=== PATIENT | female | born 1960 | race Caucasian/White ===

== ENCOUNTER 2018-11-17 09:33 | Inpatient (IN) | payer OTHER, SELFPAY ==
[2018-11-17] MEDS ORDERED: NA CHLORIDE 0.9% 1,000 ML ONE ×2 (10:46→11:12)
[2018-11-17] MEDS ORDERED: PIPER/TAZO/NS 3.375gm 3.375 GM/100 ML BAG ONE (10:47)
[2018-11-17 10:48] LABS: Absolute Lymphocytes (CBC) 2.1 K/uL (0.7-4.9); Basophils % 0.8 % (0-1.3); Eosinophils % 1.7 % (0-4.4); Hematocrit 42.3 % (36.0-45.0); Lymphocytes % 24.5 % (15.3-44.8); MPV 9.7 fL (7.6-11.3); Monocytes % 6.4 % (3.3-12.3); Protime INR 0.96; RBC Red Blood Cell Count 4.71 M/uL (3.86-4.86)
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
[2018-11-17 11:04] LABS: ALT/SGPT 35 U/L (12-78); AST/SGOT 20 U/L (15-37); Albumin 3.4 g/dL (3.4-5.0); Alkaline Phosphatase 153 U/L (45-117); BUN Blood Urea Nitrogen 10 mg/dL (7-18); Bicarbonate 24 mmol/L (21-32); Bilirubin Direct < 0.1 mg/dL (0-0.2); Bilirubin Total 0.4 mg/dL (0.2-1.0); Glucose Level 172 mg/dL (74-106); Magnesium 2.2 mg/dL (1.8-2.4); NT PRO-BNP 37 pg/mL (<125); Potassium 3.8 mmol/L (3.5-5.1); Protein, Total 7.4 g/dL (6.4-8.2); Sodium Level 140 mmol/L (136-145); Troponin I < 0.02 ng/mL (0.0-0.045)
[2018-11-17] MEDS ORDERED: VANCOMYCIN/NS 1 gm 1 GM/250 ML BAG IV ONE (11:45)
[2018-11-17] MEDS ORDERED: Levofloxacin500mg IV 500 MG/100 ML BAG IV SCH (12:00)
[2018-11-17] MEDS: NA CHLORIDE 0.9% 1,000 ML IV SCH ×2 (12:00→23:04)
--- NOTE | 2018-11-17 13:31 | RAD REPORT ---
EXAM DESCRIPTION: RAD - Chest Single View - 11/17/2018 11:37 am CLINICAL HISTORY: Cough, shortness of breath COMPARISON: April 2008 TECHNIQUE: AP portable chest image was obtained 1130 hours . FINDINGS: Lung volumes are low. Lung meyers are clear. Large body habitus and under penetrated film technique accentuate chest findings. No failure or volume overload. Heart and vasculature are normal. No measurable pleural effusion and no pneumothorax. No acute bony abnormality seen. No acute aortic findings suspected. IMPRESSION: No acute cardiopulmonary process. No significant interval change.
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
[2018-11-17] MEDS: Levofloxacin500mg IV 500 MG/100 ML BAG IV SCH (16:43)
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
[2018-11-17] MEDS ORDERED: ACETAMINOPHEN 325 MG TABLET PO PRN (20:05)
[2018-11-17] MEDS: PAROXETINE 40 MG PO SCH (21:00)
[2018-11-18 06:01] LABS: Absolute Lymphocytes (CBC) 2.6 K/uL (0.7-4.9); Basophils % 0.8 % (0-1.3); Eosinophils % 1.9 % (0-4.4); Hematocrit 38.4 % (36.0-45.0); Lymphocytes % 32.8 % (15.3-44.8); MPV 9.7 fL (7.6-11.3); Monocytes % 7.6 % (3.3-12.3)
[2018-11-18 06:23] LABS: ALT/SGPT 29 U/L (12-78); AST/SGOT 16 U/L (15-37); Albumin 2.9 g/dL (3.4-5.0); Alkaline Phosphatase 133 U/L (45-117); BUN Blood Urea Nitrogen 9 mg/dL (7-18); Bicarbonate 25 mmol/L (21-32); Bilirubin Total 0.4 mg/dL (0.2-1.0); Glucose Level 165 mg/dL (74-106); Potassium 3.9 mmol/L (3.5-5.1); Protein, Total 6.5 g/dL (6.4-8.2); Sodium Level 143 mmol/L (136-145)
--- NOTE | 2018-11-18 07:54 | EKG ---
Test Date: 2018-11-17 Test Time: 10:48:57 Conduit Bender: AJITH MEASUREMENT RESULTS: Intervals: Rate: 66 VT: 120 QRSD: 78 QT: 410 QTc: 429 [place]: P: 36 VT: 120 QRS: 48 T: 33 INTERPRETIVE STATEMENTS: Normal sinus rhythm Low voltage QRS Borderline ECG No previous ECG available for comparison Electronically Signed On 11-18-18 07:53:35 CDT by Cale Macdonald
[2018-11-18] MEDS ORDERED: PROPOFOL 200 MG/20 ML VIAL IV ONE ×2 (07:58→08:31)
[2018-11-18] MEDS ORDERED: LIDOCAINE 2% MPF 5 ML VIAL ONE (07:59)
[2018-11-18] MEDS ORDERED: MIDAZOLAM HCL 2 MG/2 ML INJ ONE (07:59)
[2018-11-18] MEDS ORDERED: FENTANYL CITR 100 MCG/2 ML ONE (07:59)
[2018-11-18] MEDS: NA CHLORIDE 0.9% 1,000 ML IV SCH ×3 (08:00→18:00)
[2018-11-18] MEDS ORDERED: BUPIVACAINE 0.25% PF 10 ML VIAL ONE (08:26)
[2018-11-18] MEDS ORDERED: NA CHLORIDE 0.9% 1,000 ML ONE (08:27)
[2018-11-18] MEDS ORDERED: BUPIVACA 0.25%/EPI 0.0005%/PF 30 ML VIAL ONE (08:43)
--- NOTE | 2018-11-18 08:46 | P.OP ---
Preoperative diagnosis: Right Breast Abscess Postoperative diagnosis: Right Breast Abscess Primary procedure: Incision and Drainage of Right Breast Abscess Anesthesia: GETA + Local Estimated blood loss: < 5cc Specimen: Aerobic, anaerobic Findings: Right Breast Abscess Transferred to: Recovery Room Condition: Good
[2018-11-18] MEDS: MEPERIDINE HCL 25 MG/0.5 ML ONE ×2 (08:58→09:12)
--- NOTE | 2018-11-18 11:02 | P.PN ---
Subjective Date of Service: 11/18/18 Chief Complaint: Breast Abscess Subjective: Doing well Physical Examination - Vital Signs Temperature: 97.4 F Blood Pressure: 129/55 Pulse: 70 Respirations: 14 Pulse Ox (%): 98 - Physical Exam General: Alert, In no apparent distress, Oriented x3, Cooperative HEENT: Atraumatic Neck: Supple Respiratory: Clear to auscultation bilaterally, Normal air movement Cardiovascular: Normal pulses, Regular rate/rhythm Neurological: Normal speech, Normal strength at 5/5 x4 extr, Normal tone - Studies Laboratory Data (last 24 hrs) 11/17/18 10:30: Sodium 140, Potassium 3.8, BUN 10, Creatinine 0.65, Glucose 172 H, Magnesium 2.2, Total Bilirubin 0.4, AST 20, ALT 35, Alkaline Phosphatase 153 H, Troponin I < 0.02 11/17/18 10:12: PT Cancelled, INR Cancelled 11/17/18 10:12: WBC Cancelled, Hgb Cancelled, Hct Cancelled, Plt Count Cancelled 11/17/18 10:12: Sodium Cancelled, Potassium Cancelled, BUN Cancelled, Creatinine Cancelled, Glucose Cancelled, Magnesium Cancelled, Total Bilirubin Cancelled, AST Cancelled, ALT Cancelled, Alkaline Phosphatase Cancelled Medications List Reviewed: Yes Assessment & Plan Discharge Plan: Home Plan to discharge in: 48 Hours Physician Review Additional Text: Impression: Right breast abscess with cellulitis, failed outpatient treatment Diabetes mellitus type 2, non insulin dependent Depression Plan: Right breast abscess with cellulitis, failed outpatient treatment: Continue with IV antibiotic therapy. Patient had surgical debridement of right abscess. Will have nursing teach on wound care. Cultures obtained during surgery. Will discuss with surgery about plan of care. Likely discharge in the next 24-48 hr. Diabetes mellitus type 2, non insulin dependent: There is history of diabetes. Will check A1c. Continue sliding scale. Patient reports having difficulty taking metformin in the past. Depression: Will verify and restart home medication. Time Spent Managing Pts Care (In Minutes): 55
[2018-11-18] MEDS ORDERED: TRAMADOL HCL 50 MG TAB PO PRN (11:04)
--- NOTE | 2018-11-18 12:20 | OP ---
Date of Procedure: 11/18/2018 Surgeon: William Daley MD, Preoperative Diagnosis: Right breast abscess. Postoperative Diagnosis: Right breast abscess. Procedure Performed: Incision and drainage right breast abscess. Anesthesia: General endotracheal plus local with 0.25% Marcaine with epinephrine. Estimated Blood Loss: Less than 5 cc. Specimen: Aerobic and anaerobic culture sent for speciation. Findings: Right breast abscess approximately 4 cm spherical at the 9 o'clock to 8 o'clock position a t the outside the nipple-areolar complex. Transferred to recovery room in good condition. Procedure In Detail: After informed consent was obtained, the patient was brought to the operating r oom, prepped and draped in the usual sterile fashion. After adequate anesthesia was achieved, I made a linear radial incision outside the nipple-areolar complex at approximately 8 o'clock position for approximately 7.5 cm to 2 cm in length. I immediately encountered abscess. This was cultured at thi s time. The area was copiously irrigated and suctioned out until completely dry. I digitized the ca vity and broke up all loculations. The area was copiously irrigated multiple times. Hemostasis was easily achieved with electrocautery and the wound was packed with quarter-inch iodoform packing and a sterile dressing was placed over top. The patient tolerated the procedure well without evidence of complication and transferred to PACU in good condition. All counts were correct at the end of the ca se. GERALD/NIKKI Voice ID: [id number] Report ID: [id number]
[2018-11-18] MEDS: Levofloxacin500mg IV 500 MG/100 ML BAG IV SCH (15:15)
[2018-11-18] MEDS: HYDROCODONE/APAP 10/325 TAB PO PRN ×2 (15:16→21:07)
[2018-11-18] MEDS ORDERED: ENOXAPARIN 40 MG/0.4 ML SQ SCH (17:00)
[2018-11-18] MEDS: PAROXETINE 40 MG PO SCH (21:06)
[2018-11-19] MEDS: NA CHLORIDE 0.9% 1,000 ML IV SCH ×2 (00:57→03:04)
[2018-11-19 05:44] LABS: Absolute Lymphocytes (CBC) 2.8 K/uL (0.7-4.9); Basophils % 0.6 % (0-1.3); Eosinophils % 2.1 % (0-4.4); Hematocrit 37.3 % (36.0-45.0); Lymphocytes % 34.7 % (15.3-44.8); MPV 9.8 fL (7.6-11.3); Monocytes % 7.2 % (3.3-12.3); RBC Red Blood Cell Count 4.06 M/uL (3.86-4.86)
[2018-11-19 06:06] LABS: BUN Blood Urea Nitrogen 10 mg/dL (7-18); Bicarbonate 24 mmol/L (21-32); Glucose Level 150 mg/dL (74-106); Magnesium 2.1 mg/dL (1.8-2.4); Potassium 3.8 mmol/L (3.5-5.1); Sodium Level 141 mmol/L (136-145)
[2018-11-19] MEDS: HYDROCODONE/APAP 10/325 TAB PO PRN (08:41)
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
== END 2018-11-19 11:00 | disposition home or self-care (01) | DRG 600 ==
LOC: ER 09:33 → ERHOLD 10:48 → 2ND 13:33
PROVIDERS: ADMIT Family Medicine; ATTEND Family Medicine
PROC: 0H9T3ZX Drainage of Right Breast, Percutaneous Approach, Diagnostic (ICD-10-PCS; principal; 2018-11-18 08:00)
DX: N61.1 Abscess of the breast and nipple (principal); Z68.41 Body mass index [BMI] 40.0-44.9, adult; E11.9 Type 2 diabetes mellitus without complications; F32.9 Major depressive disorder, single episode, unspecified; K21.9 Gastro-esophageal reflux disease without esophagitis; G47.33 Obstructive sleep apnea (adult) (pediatric); E66.9 Obesity, unspecified; Z91.040 Latex allergy status
CPT/HCPCS: 36415; 71045; 80048; 80053; 80076; 82962; 83036; 83735; 83880; 84484; 85025; 85610; 87040; 87070; 87075; 87077; 87186; 87205; 93005; 96365; 96375; 99285; J1650; J2175; J2250; J2543; J2704; J3010; J3370; J7030

== ENCOUNTER 2018-11-20 16:46 | Emergency (ER) | payer SELFPAY ==
--- OUTSIDE RECORDS SUMMARY | 2018-11-20 16:48 | XMS REPORT ---
:1960 [facility] Address [address] [place] [address] [address] [place] [address] Care Team Providers Name Role Phone Unavailable Unavailable Unavailable Problems This patient has no known problems. Allergies, Adverse Reactions, Alerts This patient has no known allergies or adverse reactions. Medications This patient has no known medications.
[2018-11-20 18:36] LABS: Absolute Lymphocytes (CBC) 0.8 K/uL (0.7-4.9); Basophils % 0.4 % (0-1.3); Eosinophils % 0.4 % (0-4.4); Hematocrit 40.7 % (36.0-45.0); Lymphocytes % 8.5 % (15.3-44.8); MPV 9.4 fL (7.6-11.3); Monocytes % 4.2 % (3.3-12.3); RBC Red Blood Cell Count 4.55 M/uL (3.86-4.86)
[2018-11-20] MEDS ORDERED: PROMETHAZINE 25 MG/ML VIAL ONE ×2 (18:37→21:11)
[2018-11-20] MEDS ORDERED: FENTANYL CITR 100 MCG/2 ML ONE ×2 (18:38→20:22)
[2018-11-20] MEDS ORDERED: NA CHLORIDE 0.9% 1,000 ML ONE (18:38)
[2018-11-20 18:49] LABS: Albumin 3.4 g/dL (3.4-5.0); Bilirubin Direct 0.1 mg/dL (0-0.2); Bilirubin Total 0.6 mg/dL (0.2-1.0); Potassium 3.6 mmol/L (3.5-5.1); Protein, Total 7.3 g/dL (6.4-8.2)
[2018-11-20 20:03] LABS: Urine Bacteria <20 /HPF (<20); Urine Culture Reflex Order NOT NEEDED; Urine RBC <5 /HPF (NONE SEEN)
[2018-11-20 20:51] LABS: Urine Blood NEGATIVE (NEG); Urine Glucose NEGATIVE (NEG); Urine Protein NEGATIVE (NEG); Urine Specific Gravity 1.015 (1.005-1.030); Urine pH 5.5 (5.0-7.0)
--- NOTE | 2018-11-20 21:02 | EDPHYS ---
Physician Documentation [facility] Name: Minnie Hermosillo Age: 58 yrs Sex: Female : 1960 Arrival Date: 11/20/2018 Time: 16:49 Bed 20 Private MD: ED Physician Niles Butcher HPI: 11/20 18:10 This 58 yrs old Female presents to ER via Unassigned with complaints of snw Fever, Vomiting. 18:10 The patient reports fever, that was measured at 103 degrees Fahrenheit. Onset: The snw symptoms/episode began/occurred suddenly, today, and became persistent. Modifying factors: recent I\T\D of breast abscess. Associated signs and symptoms: Pertinent positives: chills, decreased appetite, nausea. Severity of symptoms: At their worst the symptoms were moderate severe. The patient has been recently seen by a physician: Dr. Daley. I\T\D of breast abscess Sunday. Dr. Daley in ED, will admit to hospitalist for IV abx if necessary. Will check culture sensitivities. Historical: - Allergies: 16:53 Codeine; aj 16:53 Latex, Natural Rubber; aj - Home Meds: 21:02 Reglan Oral [Active]; ao - PMHx: 21:02 Diabetes - NIDDM; ao - PSHx: 21:02 None; ao - Immunization history:: Adult Immunizations unknown. - Social history:: Smoking status: Patient/guardian denies using tobacco. - Ebola Screening: : No symptoms or risks identified at this time. ROS: 18:09 Eyes: Negative for injury, pain, redness, and discharge, ENT: Negative for injury, snw pain, and discharge, Neck: Negative for injury, pain, and swelling, Cardiovascular: Negative for chest pain, palpitations, and edema, Respiratory: Negative for shortness of breath, cough, wheezing, and pleuritic chest pain, Abdomen/GI: Negative for abdominal pain, nausea, vomiting, diarrhea, and constipation, Back: Negative for injury and pain, : Negative for injury, bleeding, discharge, and swelling, MS/Extremity: Negative for injury and deformity, Neuro: Negative for headache, weakness, numbness, tingling, and seizure, Psych: Negative for depression, anxiety, suicide ideation, homicidal ideation, and hallucinations. 18:09 Constitutional: Positive for body aches, chills, fever, malaise, poor PO intake. 18:09 Skin: Positive for abscess, cellulitis, right breast abscess drained on Sunday. Started with 103 fever today, nausea, vomiting. Exam: 18:03 Head/Face: Normocephalic, atraumatic. Eyes: Pupils equal round and reactive to light, snw extra-ocular motions intact. Lids and lashes normal. Conjunctiva and sclera are non-icteric and not injected. Cornea within normal limits. Periorbital areas with no swelling, redness, or edema. ENT: Nares patent. No nasal discharge, no septal abnormalities noted. Tympanic membranes are normal and external auditory canals are clear. Oropharynx with no redness, swelling, or masses, exudates, or evidence of obstruction, uvula midline. Mucous membranes moist. Neck: Trachea midline, no thyromegaly or masses palpated, and no cervical lymphadenopathy. Supple, full range of motion without nuchal rigidity, or vertebral point tenderness. No Meningismus. Chest/axilla: Normal chest wall appearance and motion. Nontender with no deformity. No lesions are appreciated. Cardiovascular: Regular rate and rhythm with a normal S1 and S2. No gallops, murmurs, or rubs. Normal PMI, no JVD. No pulse deficits. Respiratory: Lungs have equal breath sounds bilaterally, clear to auscultation and percussion. No rales, rhonchi or wheezes noted. No increased work of breathing, no retractions or nasal flaring. Abdomen/GI: Soft, non-tender, with normal bowel sounds. No distension or tympany. No guarding or rebound. No evidence of tenderness throughout. Back: No spinal tenderness. No costovertebral tenderness. Full range of motion. MS/ Extremity: Pulses equal, no cyanosis. Neurovascular intact. Full, normal range of motion. Neuro: Awake and alert, GCS 15, oriented to person, place, time, and situation. Cranial nerves II-XII grossly intact. Motor strength 5/5 in all extremities. Sensory grossly intact. Cerebellar exam normal. Normal gait. Psych: Awake, alert, with orientation to person, place and time. Behavior, mood, and affect are within normal limits. 18:03 Constitutional: The patient appears awake, febrile, obese, uncomfortable. 18:03 Skin: Appearance: normal except for affected area, cellulitis, that is mild, well demarcated, on the surrounding I\T\D of right breast at 8 0'clock. Vital Signs: 16:53 BP 142 / 52; Pulse 95; Resp 16; Temp 98.4; Pulse Ox 96% on R/A; Weight 113.4 kg; Height aj 5 ft. 6 in. (167.64 cm); 18:30 BP 147 / 66; Pulse 88; Resp 18; Temp 100.8(O); Pulse Ox 96% on R/A; ph 19:41 BP 123 / 46; Pulse 84; Resp 16; Pulse Ox 98% ; ao 20:50 BP 134 / 52; Pulse 78; Resp 18; Pulse Ox 98% on R/A; ao 21:30 BP 114 / 43; Pulse 77; Resp 18; Pulse Ox 96% on R/A; ao 16:53 Body Mass Index 40.35 (113.40 kg, 167.64 cm) aj MDM: 17:43 Patient medically screened. snw 21:03 Data reviewed: vital signs, nurses notes. Data interpreted: Pulse oximetry: on room air snw is 98 %. Interpretation: normal. Counseling: I had a detailed discussion with the patient and/or guardian regarding: the historical points, exam findings, and any diagnostic results supporting the discharge/admit diagnosis, lab results, the need for outpatient follow up, to return to the emergency department if symptoms worsen or persist or if there are any questions or concerns that arise at home. Special discussion: Based on the history and exam findings, there is no indication for further emergent testing or inpatient evaluation. I discussed with the patient/guardian the need to see the general surgeon for further evaluation of the symptoms. I discussed with the patient/guardian the need to see the primary care provider for further evaluation of the symptoms. 11/20 17:30 Order name: Basic Metabolic Panel; Complete Time: 18:50 snw 11/20 17:30 Order name: CBC with Diff snw 11/20 17:30 Order name: Creatinine for Radiology; Complete Time: 18:50 snw 11/20 17:30 Order name: Hepatic Function; Complete Time: 18:50 snw 11/20 17:30 Order name: Lipase; Complete Time: 18:50 snw 11/20 17:30 Order name: Urine Culture [facility] 11/20 17:30 Order name: Urine Microscopic Only; Complete Time: 20:05 snw 11/20 18:02 Order name: Blood Culture Adult (2) [facility] 11/20 18:13 Order name: Flu; Complete Time: 18:50 w 11/20 20:24 Order name: Urine Dipstick--Ancillary (enter results); Complete Time: 20:53 ar5 11/20 17:30 Order name: Labs collected and sent; Complete Time: 18:20 snw 11/20 17:30 Order name: Urine Dipstick-Ancillary (obtain specimen); Complete Time: 19:39 snw 11/20 19:51 Order name: Wound Care: packing and dressing change; Complete Time: 20:27 snw Administered Medications: 18:35 Drug: NS 0.9% 1000 ml Route: IV; Rate: 125 ml/hr; Site: left antecubital; ph 21:32 Follow up: IV Status: Completed infusion; IV Intake: 1000ml ao 18:35 Drug: fentaNYL (PF) 25 mcg Route: IVP; Site: left antecubital; ph 19:02 Follow up: Response: No adverse reaction; Pain is decreased ph 18:35 Drug: Phenergan 6.25 mg Route: IVP; Site: left antecubital; ph 19:02 Follow up: Response: No adverse reaction; Nausea is decreased ph 20:15 Drug: fentaNYL (PF) 25 mcg Route: IVP; Site: left antecubital; ao 21:04 Follow up: Response: No adverse reaction ao 21:03 Drug: Phenergan 6.25 mg Route: IVP; Site: left antecubital; ao 21:28 Follow up: Response: No adverse reaction ao 21:03 Drug: Motrin 400 mg Route: PO; ao 21:27 Follow up: Response: No adverse reaction ao 21:03 Drug: Doxycycline 100 mg Route: PO; ao 21:27 Follow up: Response: No adverse reaction ao 21:03 Drug: Bactrim (160 mg-800 mg (DS) 1 tablet Route: PO; ao 21:27 Follow up: Response: No adverse reaction ao Disposition: 11/21 10:23 Co-signature as Attending Physician, Niles Butcher MD I agree with the assessment and kdr plan of care. Disposition: 11/20/18 21:01 Discharged to Home. Impression: Adverse effect of other systemic antibiotics, Methicillin susceptible Staphylococcus aureus infection, unspecified site, Fever presenting with conditions classified elsewhere. - Condition is Stable. - Discharge Instructions: Fever, Adult, Community-Associated MRSA, Nausea and Vomiting, Adult, Wound Care. - Prescriptions for promethazine 25 mg Oral Tablet - take 1 tablet by ORAL route every 6 hours As needed; 20 tablet. - Medication Reconciliation Form, Thank You Letter, Antibiotic Education, Prescription Opioid Use form. - Follow up: William Daley MD; When: 1 week; Reason: Recheck today's complaints, Continuance of care, Re-evaluation by your physician. Follow up: Emergency Department; When: As needed; Reason: Worsening of condition. - Notes: Please continue antibiotics as prescribed and return to ED for any worsening s/s Signatures: Dispatcher [employer] EDMS Clary Voss RN RN Niles Feldman MD MD [facility] Elena Myles, BACKREST ASSEMBLER-C BACKREST ASSEMBLER-Csnw Melody Wharton RN RN Manuel Mckeon RN RN ao Corrections: (The following items were deleted from the chart) 11/20 21:32 21:01 11/20/2018 21:01 Discharged to Home. Impression: Adverse effect of other systemic ao antibiotics; Methicillin susceptible Staphylococcus aureus infection, unspecified site; Fever presenting with conditions classified elsewhere. Condition is Stable. Forms are Medication Reconciliation Form, Thank You Letter, Antibiotic Education, Prescription Opioid Use. Follow up: William Daley; When: 1 week; Reason: Recheck today's complaints, Continuance of care, Re-evaluation by your physician. Follow up: Emergency Department; When: As needed; Reason: Worsening of condition. snw
--- NOTE | 2018-11-20 21:02 | ER ---
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 Denies taking anything for fever at home. Patient had breast abscess removed on Sunday. Denies drainage. Care prior to arrival: None. 16:52 Acuity: LIN 4 aj 18:38 Transition of care: patient was not received from another setting of care. Onset of ph symptoms was November 20, 2018. Risk Assessment: Do you want to hurt yourself or someone else? Patient reports no desire to harm self or others. Initial Sepsis Screen: Does the patient meet any 2 criteria? No. Patient's initial sepsis screen is negative. Does the patient have a suspected source of infection? Yes: Skin breakdown/wound. 18:38 Method Of Arrival: Ambulatory ph Triage Assessment: 16:53 General: Appears in no apparent distress. comfortable, Behavior is calm, cooperative, aj appropriate for age. Pain: Denies pain. Neuro: Level of Consciousness is awake, alert, obeys commands, Oriented to person, place, time, situation, Appropriate for age. GI: Reports nausea, vomiting. Derm: Skin is intact, is healthy with good turgor, Skin is pink, warm \T\ dry. normal. Historical: - Allergies: 16:53 Codeine; aj 16:53 Latex, Natural Rubber; aj - Home Meds: 21:02 Reglan Oral [Active]; ao - PMHx: 21:02 Diabetes - NIDDM; ao - PSHx: 21:02 None; ao - Immunization history:: Adult Immunizations unknown. - Social history:: Smoking status: Patient/guardian denies using tobacco. - Ebola Screening: : No symptoms or risks identified at this time. Screenin:38 Abuse screen: Denies threats or abuse. Denies injuries from another. Nutritional ph screening: No deficits noted. Nutritional screening: No deficits noted. Tuberculosis screening: No symptoms or risk factors identified. Fall Risk None identified. Assessment: 17:45 General: Appears in no apparent distress. comfortable, obese, well groomed, Behavior is ph calm, cooperative, appropriate for age, Reports fever for 12-24 hours. Pain: Complains of pain in right breast. Neuro: Level of Consciousness is awake, alert, obeys commands, Oriented to person, place, time, situation. Cardiovascular: Capillary refill < 3 seconds in bilateral fingers Patient's skin is warm and dry. Respiratory: Airway is patent Respiratory effort is even, unlabored, Respiratory pattern is regular, symmetrical, Denies cough, shortness of breath. GI: Abdomen is round non-distended, Bowel sounds present X 4 quads. Abd is soft and non tender X 4 quads. Reports nausea, vomiting, since today Patient currently denies abdominal pain, diarrhea. Derm: Skin is healthy with good turgor, Skin is pink, warm \T\ dry. Musculoskeletal: Circulation, motion, and sensation intact. Range of motion: intact in all extremities. 19:39 General: Appears in no apparent distress. comfortable, obese, well groomed, Behavior is ao calm, cooperative, appropriate for age. Pain: Complains of pain in right breast. Neuro: Level of Consciousness is awake, alert, obeys commands, Oriented to person, place, time, situation, Moves all extremities. Full function Speech is normal, Facial symmetry appears normal. Cardiovascular: Capillary refill < 3 seconds in bilateral fingers Patient's skin is warm and dry. Respiratory: Airway is patent Respiratory effort is even, unlabored, Respiratory pattern is regular, symmetrical. GI: Abdomen is round non-distended. : No deficits noted. EENT: No deficits noted. Derm: Skin is healthy with good turgor, Skin is pink, warm \T\ dry. normal. Musculoskeletal: Circulation, motion, and sensation intact. Range of motion:. 20:50 Reassessment: Patient appears in no apparent distress at this time. Patient and/or ao family updated on plan of care and expected duration. Pain level reassessed. Wound has been pack. waiting on dispo orders at this time. General:. 21:28 Reassessment: Dc instructions given to patient and significant other. patient agree to ao follow up with Dr Chaparro and PCP. No questions at this time. Vital Signs: 16:53 BP 142 / 52; Pulse 95; Resp 16; Temp 98.4; Pulse Ox 96% on R/A; Weight 113.4 kg; Height aj 5 ft. 6 in. (167.64 cm); 18:30 BP 147 / 66; Pulse 88; Resp 18; Temp 100.8(O); Pulse Ox 96% on R/A; ph 19:41 BP 123 / 46; Pulse 84; Resp 16; Pulse Ox 98% ; ao 20:50 BP 134 / 52; Pulse 78; Resp 18; Pulse Ox 98% on R/A; ao 21:30 BP 114 / 43; Pulse 77; Resp 18; Pulse Ox 96% on R/A; ao 16:53 Body Mass Index 40.35 (113.40 kg, 167.64 cm) aj ED Course: 16:49 Patient arrived in ED. as 16:53 Triage completed. aj 16:53 Arm band placed on right wrist. Patient placed in an exam room. aj 17:19 Melody Wharton, ANGELA is Primary Nurse. ph 17:30 Elena Myles FNP-C is PHCP. snw 17:30 Niles Butcher MD is Attending Physician. snw 18:15 Inserted saline lock: 22 gauge in left antecubital area, using aseptic technique. ph 18:41 Patient has correct armband on for positive identification. Bed in low position. Call ph light in reach. Side rails up X2. Pulse ox on. NIBP on. Door closed. Noise minimized. Head of bed elevated. 20:54 William Daley MD is Referral Physician. snw 21:29 No provider procedures requiring assistance completed. IV discontinued, intact, ao bleeding controlled, No redness/swelling at site. Pressure dressing applied. Administered Medications: 18:35 Drug: NS 0.9% 1000 ml Route: IV; Rate: 125 ml/hr; Site: left antecubital; ph 21:32 Follow up: IV Status: Completed infusion; IV Intake: 1000ml ao 18:35 Drug: fentaNYL (PF) 25 mcg Route: IVP; Site: left antecubital; ph 19:02 Follow up: Response: No adverse reaction; Pain is decreased ph 18:35 Drug: Phenergan 6.25 mg Route: IVP; Site: left antecubital; ph 19:02 Follow up: Response: No adverse reaction; Nausea is decreased ph 20:15 Drug: fentaNYL (PF) 25 mcg Route: IVP; Site: left antecubital; ao 21:04 Follow up: Response: No adverse reaction ao 21:03 Drug: Phenergan 6.25 mg Route: IVP; Site: left antecubital; ao 21:28 Follow up: Response: No adverse reaction ao 21:03 Drug: Motrin 400 mg Route: PO; ao 21:27 Follow up: Response: No adverse reaction ao 21:03 Drug: Doxycycline 100 mg Route: PO; ao 21:27 Follow up: Response: No adverse reaction ao 21:03 Drug: Bactrim (160 mg-800 mg (DS) 1 tablet Route: PO; ao 21:27 Follow up: Response: No adverse reaction ao Intake: 21:32 IV: 1000ml; Total: 1000ml. ao Outcome: 21:01 Discharge ordered by . snw 21:30 Discharged to home ambulatory. ao 21:30 Condition: good 21:30 Discharge instructions given to patient, significant other, Instructed on discharge instructions, follow up and referral plans. Demonstrated understanding of instructions, follow-up care. 21:32 Patient left the ED. ao Signatures: Clary Voss, RN RN Elena Hong, RETORT FURNACE OPERATOR-C RETORT FURNACE OPERATOR-Csnw Shauna Su Patricia, ANGELA MILLER Manuel Mckeon RN RN ao
[2018-11-20] MEDS ORDERED: IBUPROFEN 400 MG TAB ONE (21:11)
[2018-11-20] MEDS ORDERED: SMZ./TMP. 800/160 MG TABLET ONE (21:11)
[2018-11-20] MEDS ORDERED: DOXYCYCLINE 100 MG CAP PO ONE (21:12)
[2018-11-20 22:30] LABS: Blood Morphology Comment NOT SEEN (NOT SEEN); Platelet Estimate ADEQ; Toxic Granulation PRESENT
== END 2018-11-20 21:32 | disposition home or self-care (01) ==
LOC: ER 16:46
DX: T36.8X5A Adverse effect of other systemic antibiotics, initial encounter (principal); A49.02 Methicillin resistant Staphylococcus aureus infection, unspecified site; E11.9 Type 2 diabetes mellitus without complications; Z88.5 Allergy status to narcotic agent; Z91.040 Latex allergy status
CPT/HCPCS: 36415; 80048; 80076; 81003; 81015; 83690; 85025; 87040; 87086; 87088; 87804; 96361; 96374; 96375; 99284; J2550; J3010; J7030